=== PATIENT | female | born 1995 | race Two or more races ===

== ENCOUNTER 2016-12-09 17:29 | Emergency (ER) | payer MEDICAID ==
[~2016-12-09] VITALS: Ht 167.6 cm; Wt 80.0 kg
[2016-12-09] MEDS ORDERED: KETOROLAC 60MG/2ML VIAL IM ONE (19:30)
[2016-12-09 20:08] VITALS: BP 130/90
== END 2016-12-09 21:30 | disposition home or self-care (01) ==
LOC: ER 17:30
DX: S90.32XA Contusion of left foot, initial encounter (principal); W22.8XXA Striking against or struck by other objects, initial encounter; Y93.89 Activity, other specified; Y92.89 Other specified places as the place of occurrence of the external cause; R03.0 Elevated blood-pressure reading, without diagnosis of hypertension
CPT/HCPCS: 73610; 73630; 96372; 99284; J1885